=== PATIENT | female | born 1955 | race Caucasian/White ===

== ENCOUNTER 2016-12-23 19:02 | Emergency (ER) | payer BC ==
[~2016-12-23] VITALS: Ht 160 cm; Wt 75.0 kg
[2016-12-23 19:05] VITALS: TEMP 97.9
[2016-12-23] MEDS ORDERED: ZOFRAN ODT4 MG PO (19:28)
[2016-12-23] MEDS ORDERED: TEGRETOL 2200 MG/TA1 PO (19:28)
[2016-12-23] MEDS ORDERED: PREDNISONE20 MG PO (19:28)
[2016-12-23] MEDS ORDERED: IMITREX100 MG PO (19:29)
[2016-12-23] MEDS ORDERED: XANAX .25M0.25 MG/TA PO (19:29)
[2016-12-23] MEDS ORDERED: SYNTHROID0.125 MG/T PO (19:29)
[2016-12-23] MEDS ORDERED: ROXICODONE 55 MG/TAB PO (19:29)
[2016-12-23] MEDS ORDERED: LYRICA 75MG CAP75 MG PO (21:08)
[2016-12-23] MEDS ORDERED: LIDODERM 5% PATC1 EA TP (21:08)
[2016-12-23 21:25] VITALS: BP 152/64; PULSE 78
== END 2016-12-23 21:27 | disposition home or self-care (01) ==
LOC: COL.ER 19:02
DX: R51 Headache (principal); F17.210 Nicotine dependence, cigarettes, uncomplicated

== ENCOUNTER 2017-12-09 05:35 | Day surgery (SDC) | payer BC ==
[~2017-12-09] VITALS: Ht 160 cm; Wt 77.0 kg
[2017-12-09] VITALS (9 sets, daily range): BP systolic 103–135; BP diastolic 55–103; PULSE 72–99; TEMP 97.4–98.2
[~2017-12-09 05:35] MED LIST: IMITREX100 MG PO; LIDODERM 5% PATC1 EA TP; LYRICA 75MG CAP75 MG PO; PREDNISONE20 MG PO; ROXICODONE 55 MG/TAB PO; SYNTHROID0.125 MG/T PO; TEGRETOL 2200 MG/TA1 PO; XANAX .25M0.25 MG/TA PO; ZOFRAN ODT4 MG PO
[2017-12-09] MEDS ORDERED: LIPITOR20 MG PO (05:59)
[2017-12-09] MEDS ORDERED: FLEXERIL 1010 MG/TAB PO (06:00)
[2017-12-09] MEDS ORDERED: CHANTIX 1MG1 MG PO (06:01)
[2017-12-09] MEDS ORDERED: PERCOCET 325 MG1 TA2 PO (09:44)
[2017-12-09] MEDS ORDERED: COLACE 100100 MG/CAP PO (09:45)
[2017-12-09] MEDS ORDERED: MOBIC 7.5MG7.5 MG PO (09:46)
[2017-12-09] MEDS ORDERED: ZOFRAN 4MG T4 MG/TAB PO (09:47)
== END 2017-12-09 12:30 | disposition home or self-care (01) ==
LOC: SDCO 05:35
DX: M75.111 Incomplete rotator cuff tear or rupture of right shoulder, not specified as traumatic (principal); M75.51 Bursitis of right shoulder; M24.811 Other specific joint derangements of right shoulder, not elsewhere classified; R51 Headache; E78.00 Pure hypercholesterolemia, unspecified; F17.210 Nicotine dependence, cigarettes, uncomplicated; R56.9 Unspecified convulsions; G89.18 Other acute postprocedural pain
CPT/HCPCS: C1713; J0171; J2250; J2550; J2704; J2795; J3010; J7120

== ENCOUNTER → 2024-02-03 | Outpatient (CLI) | payer OTHER ==
[~2024-02-03] MED LIST changes: +CHANTIX 1MG1 MG PO; +COLACE 100100 MG/CAP PO; +FLEXERIL 1010 MG/TAB PO; +LIPITOR20 MG PO; +MOBIC 7.5MG7.5 MG PO; +PERCOCET 325 MG1 TA2 PO; +ZOFRAN 4MG T4 MG/TAB PO
== END ==
LOC: COL.CARD 10:00
DX: F17.200 Nicotine dependence, unspecified, uncomplicated (principal)

== ENCOUNTER → 2024-04-09 | Outpatient (CLI) | payer OTHER | LOC: COL.RAD 15:59 | DX: M25.412 Effusion, left shoulder (principal) ==